=== PATIENT | male | born 1995 | race Caucasian/White ===

== ENCOUNTER 2022-06-30 15:40 | Emergency (ER) | payer BC | END 2022-06-30 16:28 | disposition home or self-care (01) | LOC: BURERS 15:40 | DX: S86.912A Strain of unspecified muscle(s) and tendon(s) at lower leg level, left leg, initial encounter (principal); F17.290 Nicotine dependence, other tobacco product, uncomplicated; X58.XXXA Exposure to other specified factors, initial encounter ==